=== PATIENT | female | born 1975 | race Caucasian/White ===

== ENCOUNTER 2017-04-03 13:43 | Emergency (ER) | payer SELFPAY ==
[2017-04-03] MEDS ORDERED: Sodium Chloride 0.9% 1,000 ML IV STA (15:44)
[2017-04-03 16:15] LABS: RBC URINE 2 /hpf (0-3); URINE BACTERIA OCC (<OCC); URINE BILIRUBIN NEGATIVE (NEGATIVE); URINE BLOOD 1+ (NEGATIVE); URINE COLOR Yellow (YELLOW); URINE GLUCOSE (UA) NORMAL (Normal); URINE KETONE 1+ mg/dL (NEGATIVE); URINE LEUKOCYTE ESTERASE 1+ Leu/uL (Negative); URINE PROTEIN NEGATIVE (NEGATIVE); URINE UROBILINOGEN NORMAL mg/dL (0.2-1.0); WBC URINE 11 /hpf (0-5)
[2017-04-03] MEDS ORDERED: Sodium Chloride 0.9% 1,000 ML ONE (16:35)
[2017-04-03 16:36] LABS: BASO % 0.4 % (0.0-2.0); EOS # 0.1 K/uL (0.0-0.7); EOS % 1.3 % (0.0-4.0); HEMATOCRIT 32.6 % (34.0-47.0); LYMPH # 2.1 K/uL (1.0-4.3); LYMPH % 18.3 % (20.0-40.0); MEAN CELL VOLUME 75.7 fL (81.0-99.0); MEAN CORPUSCULAR HEMOGLOBIN 24.7 pg (27.0-31.0); MEAN CORPUSCULAR HGB CONC 32.6 g/dL (33.0-37.0); MONO # 0.7 K/uL (0.0-0.8); MONO % 5.9 % (0.0-10.0); RED CELL DISTRIBUTION WIDTH 15.7 % (11.5-14.5); WHITE BLOOD COUNT 11.2 K/uL (4.8-10.8)
[2017-04-03 16:46] LABS: ALB/GLOB RATIO 0.9 (1.0-2.1); ALKALINE PHOSPHATASE 51 U/L (38-126); ALT/SGPT 30 U/L (9-52); AST/SGOT 16 U/L (14-36); BILIRUBIN,TOTAL 0.3 mg/dL (0.2-1.3); BLOOD UREA NITROGEN 4 mg/dL (7-17); CALCIUM 8.6 mg/dl (8.6-10.4); CARBON DIOXIDE 26 mmol/L (22-30); CHLORIDE 103 mmol/L (98-107); GFR AFRICAN-AMERICAN > 60; GLUCOSE,RANDOM 83 mg/dL (65-105); POTASSIUM 3.2 mmol/L (3.6-5.2); SODIUM 135 mmol/L (132-148); TOTAL PROTEIN 7.8 g/dL (6.3-8.3)
--- NOTE | 2017-04-03 16:47 | C.PDOC ---
History Of Present Illness <Tana Hanson - Last Filed: 04/03/17 18:55> <Evelia Peter - Last Filed: 04/04/17 01:49> 42 y/o female, 13 weeks , presents to ED for evaluation of back pain, and pelvic pain. As per son, pt came back from [place] yesterday, was in an uncomfortable chair during the 20 hour flight. Denies urinary symptoms, vaginal discharge, vaginal bleeding, or fever. (Tana Hanson) History Per: Patient History/Exam Limitations: no limitations Onset/Duration Of Symptoms: Days Current Symptoms Are (Timing): Still Present Quality Of Discomfort: "Pain" Alleviating Factors: None Recent travel outside of the [place]: Yes Additional History Per: Patient Abnormal Vaginal Bleeding: No <Tana Hanson - Last Filed: 04/03/17 18:55> <Evelia Peter - Last Filed: 04/04/17 01:49> Time Seen by Provider: 04/03/17 15:22 Chief Complaint (Nursing): Female Genitourinary Past Medical History Reviewed: Historical Data, Nursing Documentation, Vital Signs Family History: States: Unknown Family Hx - Social History Hx Alcohol Use: No Hx Substance Use: No - Immunization History Hx Tetanus Toxoid Vaccination: No Hx Influenza Vaccination: No Hx Pneumococcal Vaccination: No <Tana Hanson - Last Filed: 04/03/17 18:55> Vital Signs: Last Vital Signs Temp 98.1 F 04/03/17 19:52 Pulse 73 04/03/17 19:52 Resp 19 04/03/17 19:52 BP 126/78 04/03/17 19:52 Pulse Ox 98 04/03/17 19:52 Review Of Systems Except As Marked, All Systems Reviewed And Found Negative. Constitutional: Negative for: Fever, Chills Gastrointestinal: Positive for: Abdominal Pain. Negative for: Nausea, Vomiting , Diarrhea Genitourinary: Positive for: Pelvic Pain. Negative for: Dysuria, Frequency, Hematuria Musculoskeletal: Positive for: Back Pain Neurological: Negative for: Weakness, Numbness, Headache, Dizziness <Tana Hanson - Last Filed: 04/03/17 18:55> Physical Exam - Physical Exam Appears: Non-toxic, No Acute Distress Skin: Normal Color, Warm, Dry Head: Atraumatic, Normacephalic Eye(s): bilateral: Normal Inspection Oral Mucosa: Moist Chest: Symmetrical Cardiovascular: Rhythm Regular, No Murmur Respiratory: Normal Breath Sounds, No Rales, No Rhonchi, No Wheezing Gastrointestinal/Abdominal: Normal Exam, Soft, No Tenderness, No Guarding, No Rebound Back: Normal Inspection, No Vertebral Tenderness, No Paraspinal Tenderness Extremity: Normal ROM Neurological/Psych: Oriented x3, Normal Speech <Tana Hanson - Last Filed: 04/03/17 18:55> ED Course And Treatment - Laboratory Results Result Diagrams: 04/03/17 16:27 04/03/17 16:27 O2 Sat by Pulse Oximetry: 100 Pulse Ox Interpretation: Normal Progress Note: Blood work, UA, pelvis US ordered and reviewed. Pt was given IV fluids. <Tana Hanson - Last Filed: 04/03/17 18:55> - Laboratory Results Result Diagrams: 04/03/17 16:27 04/03/17 16:27 <Evelia Peter - Last Filed: 04/04/17 01:49> Disposition - Disposition Disposition Time: 19:01 <Tana Hanson - Last Filed: 04/03/17 18:55> <Evelia Peter - Last Filed: 04/04/17 01:49> - Disposition Referrals: Sreedhar Lanier MD [Staff Provider] - Disposition: HOME/ ROUTINE Condition: STABLE Prescriptions: Nitrofurantoin Macrocrystals [Macrobid] 100 mg PO BID #14 cap Instructions: Urinary Tract Infection in Women (ED), at 15 to 18 Weeks (ED) Forms: [employer] 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 - Scribe Statement The provider has reviewed the documentation as recorded by the Scribe <Tana Hanson - Last Filed: 04/03/17 18:55> <Evelia Peter - Last Filed: 04/04/17 01:49> - Scribe Statement Ayden Chamberlain All medical record entries made by the Scribe were at my direction and personally dictated by me. I have reviewed the chart and agree that the record accurately reflects my personal performance of the history, physical exam, medical decision making, and the department course for this patient. I have also personally directed, reviewed, and agree with the discharge instructions and disposition. (Tana Hanson) Physician Patient Turnover Patient Signed Over To: Evelia Peter Handoff Comments: US report pending, dispo <Tana Hanson - Last Filed: 04/03/17 18:55>
[2017-04-03 18:22] VITALS: PULSE 73
[2017-04-03] MEDS ORDERED: Potassium Chloride 20 mEq ER Tab PO STA (18:22)
[2017-04-03] MEDS ORDERED: Potassium Chloride 20 mEq ER Tab PO ONE (18:27)
--- NOTE | 2017-04-03 19:25 | US ---
EXAM: US After First Trimester, Transabdominal EXAM DATE/TIME: 04/03/2017 3:44 PM CLINICAL HISTORY: 42 years old, female; Pain; complicated by abdominal or pelvic pain; Lower; Second trimester; Gestational age or lmp: 3 month ago; ; Additional info: about 13 wks, pelvic pain after 20 flight TECHNIQUE: Real-time transabdominal obstetrical ultrasound of the maternal pelvis and a second or third trimester with image documentation. COMPARISON: There are no prior studies for comparison. FINDINGS: Fetus: There is a single living intrauterine gestation in variable presentation. There is a heart rate of 150 per minute. Placenta: Placenta is anterior. There is no previa. Amniotic fluid: Amniotic fluid volume appears normal. Anatomy: Early gestational age limits evaluation of anatomy. Fluid is seen in the stomach and bladder. BIOMETRICS Gestational age by US: 15 weeks 2 days EFW: 117 g BPD: 2.98 cm, 15 weeks 3 days HC: 11.3 cm, 15 weeks 3 days AC: 9.12 cm, 15 weeks 2 days FL: 1.68 cm, 15 weeks 0 days MATERNAL: Uterus: Uterus measures approximately 16.7 x 9 by 13.4 cm. There is a 4 x 3 by 4 cm posterior fibroid. There is a 3 x 2.9 x 2.5 cm right-sided fibroid. There is a 1.5 x 1.3 x 1.6 cm low anterior fibroid. Cervix: Cervix measures approximately 3.5 cm in length. Ovaries: Right ovary measures approximately 3.1 x 2.8 x 2.7 7 m. There is a small simple cyst in the right ovary. Left ovary measures approximately 3.4 x 2.9 x 3.2 cm. There is a simple cyst in the left ovary. There is flow in both ovaries on Doppler imaging. Fluid: There is no free fluid. IMPRESSION: 15 week 2 day single living intrauterine gestation estimated date of delivery 09/23/17; multiple uterine fibroids
[2017-04-03 19:54] VITALS: BP 126/78; RESP 19; TEMP 98.1; O2SAT 98
== END 2017-04-03 19:53 | disposition home or self-care (01) ==
LOC: C.ER 13:43
DX: O26.891 Other specified pregnancy related conditions, first trimester (principal); Z3A.13 13 weeks gestation of pregnancy; R10.2 Pelvic and perineal pain
CPT/HCPCS: 76815; 80053; 81001; 84702; 85025; 85610; 85730; 86850; 86900; 96360; 99283; J7040

== ENCOUNTER 2017-06-18 14:37 | Emergency (ER) | payer MEDICAID ==
[2017-06-18 16:15] VITALS: BMI 31.2
[2017-06-18] MEDS ORDERED: Dextrose 5%/Lactated Ringer's 1,000 ML IV SCH (16:15)
[2017-06-18 17:41] LABS: SQUAMOUS EPITHIAL 5 /hpf (0-5); URINE BACTERIA MOD (<OCC); URINE BILIRUBIN NEGATIVE (NEGATIVE); URINE BLOOD NEGATIVE (NEGATIVE); URINE CLARITY Turbid (Clear); URINE GLUCOSE (UA) 1+ mg/dL (Normal); URINE LEUKOCYTE ESTERASE 2+ Leu/uL (Negative); URINE NITRATE NEGATIVE (NEGATIVE); URINE PROTEIN NEGATIVE (NEGATIVE); URINE UROBILINOGEN NORMAL mg/dL (0.2-1.0)
[2017-06-18 17:43] LABS: ALBUMIN 3.3 g/dL (3.5-5.0); ALT/SGPT 23 U/L (9-52); AST/SGOT 23 U/L (14-36); BASO % 0.2 % (0.0-2.0); BLOOD UREA NITROGEN 5 mg/dL (7-17); EOS % 0.3 % (0.0-4.0); GFR AFRICAN-AMERICAN > 60; GFR NON-AFRICAN AMERICAN > 60; HEMOGLOBIN 9.8 g/dL (11.0-16.0); LYMPH # 1.8 K/uL (1.0-4.3); LYMPH % 14.1 % (20.0-40.0); MEAN CELL VOLUME 75.9 fL (81.0-99.0); MEAN CORPUSCULAR HEMOGLOBIN 25.2 pg (27.0-31.0); MEAN CORPUSCULAR HGB CONC 33.1 g/dL (33.0-37.0); MONO # 0.5 K/uL (0.0-0.8); MONO % 3.6 % (0.0-10.0); NEUT # 10.5 K/uL (1.8-7.0); NEUT % 81.8 % (50.0-75.0); RBC 3.9 Mil/uL (3.80-5.20); RED CELL DISTRIBUTION WIDTH 14.8 % (11.5-14.5); URINE AMORPHOUS SEDIMENT MODERATE /ul (<OCC); URINE COLOR YELLOW (YELLOW); WHITE BLOOD COUNT 12.8 K/uL (4.8-10.8)
[2017-06-18 22:38] VITALS: BP 112/66; PULSE 87
--- NOTE | 2017-06-19 08:07 | OBHP ---
Datetime: 06/18/2017 16:21 IP Adm Impression: , intrauterine IP Chief Complaint Other: Back/abdominal pain, weakness IP Admit Plan: Discharge home Admit Comment, IP Provider: [facility] #[id number] used Patient is a 42 year old at 26w1d DIONY 09/23/17 by US presents to L+D for back pain and abdo mary pain. Patient states that the back pain is constant and has been getting worse. Abdominal pain is constant as well. Patient also reports feeling weakness. Last ate eggs and bread this morning. Sta nyla that on most days she eats 2 meals, sometimes 3 meals. Admits to having constipation. Last BM was yesterday and it was hard. Endorses +FM, denies CTX, VB, LOF. Patient started care in [place] initally. She has been going to [facility] since she was approximately 12 weeks . 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 Labs reviewed. Patient given prescription for Sulema-sequels 325 mg PO daily and Macrobid 100mg PO BID x 7 days. labor precautions given. Patient to follow up with clinic as regularly scheduled. Encouraged to eat at least 3 meals a day with snacks in between. Also to eat foods rich in iron. Plan discussed with Dr Lee. Attending Note: patient seen, evaluated and examined with the Resident. I agree with the above. FHR - Baseline A Provider: 150 Contraction Comments Provider: none Comments, ACOG Physical Exam: VSS Gen: AAOx3 Abd: Soft, gravid Ext: No clubbing, cyanosis, edema EGA AdmitDate IP: 26.1 Vital Signs Provider: Reviewed IP Chief Complaint: Other NICHD Variability Prov Fetus A: Moderate 6-25bpm NICHD Accel Fetus A IP Provider: [id number] FHR Category Provider Fetus A: Category I NICHD Decel Fetus A IP Provider: None Dilatation, Provider: deferred
== END 2017-06-18 18:28 | disposition home or self-care (01) ==
LOC: C.EROB 14:37
DX: O26.892 Other specified pregnancy related conditions, second trimester (principal); M54.9 Dorsalgia, unspecified; R10.9 Unspecified abdominal pain; R53.1 Weakness; Z3A.26 26 weeks gestation of pregnancy
CPT/HCPCS: 59025; 80053; 81001; 85025; 99282; J7120